=== PATIENT | male | born 1955 | race Caucasian/White ===

== ENCOUNTER 2021-01-01 12:26 | Inpatient (IN) | payer MEDICAID ==
[~2021-01-01] VITALS: Ht 177.8 cm; Wt 73.5 kg
--- NOTE | 2021-01-01 12:40 | NUR ---
BIB GRAND DAUGHTER C/O R FOOT PAIN X 2 DAYS. HX R FOOT SURGERY 2 WEEKS AGO FOR NON HEALING WOUND. PATIENT A/OX3, DAUGHTER AT BEDSIDE. DR. NAVAS AT BEDSIDE FOR EVAL.
[2021-01-01] MEDS ORDERED: IV NS 0.9% 500 ML BAG IV ONE (13:00)
[2021-01-01 13:19] LABS: BASOPHILS # (AUTO) 0.1 /CMM (0.0-0.2); BASOPHILS % (AUTO) 0.7 % (0.0-2.0); EOSINOPHILS % (AUTO) 0.7 % (0.0-6.0); HEMATOCRIT 36 % (39-51); LYMPHOCYTES # (AUTO) 1.1 /CMM (0.8-4.8); MEAN CORPUSCULAR HGB CONC 34 g/dl (31.0-36.0); MEAN CORPUSCULAR VOLUME 82 fL (80-96); MONOCYTES # (AUTO) 0.5 /CMM (0.1-1.30); NEUTROPHILS # (AUTO) 7.2 /CMM (1.8-8.9); NEUTROPHILS % (AUTO) 80.6 % (43.0-81.0); PLATELET COUNT (AUTO) 353 /CMM (150-450); RED BLOOD CELL COUNT(AUTO) 4.39 MIL/uL (4.5-6.0); WHITE BLOOD COUNT (AUTO) 8.9 K/uL (4.3-11.0)
--- NOTE | 2021-01-01 13:21 | NUR ---
IV LINE ESTABLISHED, BLOOD OBTAINED, COVID SWAB DONE AND RIGHT FOOT WOUND CULTURE SWAB DONE AND ALL SPECIMENS GIVEN TO FUNCTIONAL DIRECTOR.
[2021-01-01] MEDS ORDERED: CARV25TA PO (13:26)
[2021-01-01] MEDS ORDERED: MORPHINE SULFATE INJ 4 MG/ML DISP.SYRIN ONE (13:26)
[2021-01-01] MEDS ORDERED: ARIP5TAB10 PO (13:26)
[2021-01-01] MEDS ORDERED: AMLO2.5T2 PO (13:26)
[2021-01-01] MEDS ORDERED: METF-440 PO (13:26)
[2021-01-01] MEDS ORDERED: CEPH500C2 PO (13:26)
[2021-01-01] MEDS ORDERED: ONDANSETRON HCL/PF 4 MG/2 ML VIAL ONE (13:26)
[2021-01-01] MEDS ORDERED: ACET325T53 PO (13:26)
[2021-01-01] MEDS ORDERED: POLY17PO4 PO (13:27)
[2021-01-01] MEDS ORDERED: TRAZ-182 PO (13:27)
[2021-01-01] MEDS ORDERED: MAGN400O6 PO (13:27)
[2021-01-01] MEDS ORDERED: ONDANSETRON HCL/PF 4 MG/2 ML VIAL IV ONE (13:30)
[2021-01-01] MEDS ORDERED: MORPHINE SULFATE INJ 2 MG/ML DISP.SYRIN IV ONE (13:30)
--- NOTE | 2021-01-01 13:39 | NUR ---
RIGHT FOOT RE-DRESSED.
[2021-01-01 13:44] LABS: CALCIUM, SERUM 9.1 mg/dL (8.5-10.1); CARBON DIOXIDE 25 mmol/L (21-32); CHLORIDE 100 mmol/L (98-107); CREATININE 0.8 mg/dL (0.6-1.3); GLUCOSE 150 mg/dL (74-106); SODIUM SERUM 135 mmol/L (136-145); UREA NITROGEN, BLOOD 14 mg/dL (7-18)
[2021-01-01 13:49] LABS: ALANINE AMINOTRANSFERASE 25 U/L (12-78); ALBUMIN 3.6 g/dL (3.4-5.0); ALKALINE PHOSPHATASE 101 U/L (46-116); ASPARTATE AMINOTRANSFERASE 15 U/L (15-37); BILIRUBIN,DIRECT 0.1 mg/dL (0.0-0.2); BILIRUBIN,TOTAL 0.2 mg/dL (0.2-1.0); TOTAL PROTEIN, SERUM 7.5 g/dL (6.4-8.2)
--- NOTE | 2021-01-01 13:50 | NUR ---
PAGED EPIC INSPECTOR COLD WORKING FOR PANEL
--- NOTE | 2021-01-01 14:05 | NUR ---
CALLED FOR [facility] BED
[2021-01-01] MEDS ORDERED: CEFTRIAXONE 1GM BAG (ER ONLY) 1 GM/50 ML PIGGYBACK IV ONE (14:30)
[2021-01-01] MEDS ORDERED: CEFTRIAXONE 1 G in IV D5W 50 ML IV ONE (14:30)
[2021-01-01] MEDS ORDERED: VANCOMYCIN 1 GM in IV D5W 250 ML IV ONE (14:30)
--- NOTE | 2021-01-01 14:55 | NUR ---
REPORT GIVEN TO IMMACULATE RN. PATIENT TRANSFERRED TO MS FLOOR, IN STABLE CONDITION, WITH HIS BELONGINGS INCLUDING WHEELCHAIR.
--- NOTE | 2021-01-01 14:55 | NUR ---
MS RN ADMITTING NOTES PT TRANSPORTED TO UNIT BY TERRI AT THIS TIME. RECEIVED REPORT FROM BART ZAPIEN @EMERGENCY DEPARTMENT. AOX4. PT ABLE TO VERBALIZE NEEDS. NO SOB NOTED, NO S/O ANY APPARENT DISTRESS AT THIS TIME, NO C/O OF PAIN. PT STABLE ON RA. RESPIRATIONS EVEN AND UNLABORED. IV ACCESS IN LAC G#18, INTACT PATENT AND FLUSHING WELL. WARM TO TOUCH, ACTIVE BOWEL SOUNDS AUSCULTATED THROUGHOUT, LUNGS ARE CLEAR TO AUSCULTATION, GOOD CIRCULATION NOTED, PULSES PRESENT BILATERALLY, CAPILLARY REFILL <3SECONDS, BELONGINGS ACCOUNTED FOR. PT NOTED WITH RIGHT POSTERIOR CALF WOUND 7"X3.5"X2" DEEP AND LEFT FOOT WOUND. PICTURES TAKEN AND FILED IN CHART. ASPIRATION AND SAFETY PRECAUTIONS IN PLACE AND MAINTAINED AT ALL TIMES. BED IN LOWEST LOCKED POSITION, HOB ELEVATED, SIDE RAILS UP X 2. CALL LIGHT AND TABLE WITHIN REACH. WILL CONTINUE TO MONITOR
[2021-01-01 16:00] VITALS: BP 146/89
[2021-01-01] MEDS ORDERED: ONDANSETRON HCL/PF 4 MG/2 ML VIAL IVP PRN (17:00)
[2021-01-01] MEDS ORDERED: Z GUARD REMEDY 2 OZ OINT TP PRN (17:00)
[2021-01-01] MEDS ORDERED: IV NS 0.9% 1,000 ML IV PRN (17:00)
[2021-01-01] MEDS ORDERED: CARVEDILOL 6.25 MG TABLET PO SCH (17:00)
[2021-01-01] MEDS: METFORMIN 500 MG TABLET PO SCH (17:50)
[2021-01-01] MEDS: HYDROCODONE/APAP 5/325MG TABLET PO PRN ×2 (17:50→21:44)
--- NOTE | 2021-01-01 17:50 | NUR ---
PT C/O OF ACHING RIGHT POSTERIOR ANKLE OF 7/10. PT NOTED GRIMACING. VS BP 146/89, HR 104, RR 18, TEMP 98.1, SPO2 99%. PER PATIENT REQUEST, NORCO 5-325MG PO Q4H PRN FOR PAIN ADMINISTERED AT THIS TIME PER ORDER. WILL CONTINUE TO MONITOR
--- NOTE | 2021-01-01 18:00 | NUR ---
RENÉ, PT'S GRAND DAUGHTER AT BEDSIDE AT THIS TIME. WILL CONTINUE WITH PLAN OF CARE
--- NOTE | 2021-01-01 19:18 | NUR ---
MS RN CLOSING NOTES PT AWAKE IN BED AT THIS TIME. PT REMAINED STABLE THROUGHOUT SHIFT. ALL CARE, NEEDS, TREATMENT AND MEDICATIONS ADMINISTERED ANTICIPATED PER ORDER. PT KEPT CLEAN AND DRY. SAFETY PRECAUTIONS IN PLACE AND MAINTAINED AT ALL TIMES. BED IN LOWEST LOCKED POSITION, HOB ELEVATED, SIDE RAILS UP X 2. CALL LIGHT AND TABLE WITHIN REACH. WILL CONTINUE TO MONITOR
[2021-01-01 20:00] VITALS: BP 133/85
--- NOTE | 2021-01-01 20:10 | NUR ---
RECEIVED PATIENT IN BED ALERT AND ORIENTATED CALL LIGHT WITHIN HIS REACH RIGHT FOOT ELEVATED ON 2 PILLOWS GAUZE DRESSING CDI TOES WARM MOVEMENT PRESENNT SITTER AT THE BEDSIDE D/T HE GET OOB AND WONDERS
[2021-01-01] MEDS: ENOXAPARIN SODIUM 40 MG/0.4 ML DISP.SYRIN SQ SCH (20:31)
[2021-01-01 20:33] VITALS: BP 133/83
[2021-01-01] MEDS: CARVEDILOL 12.5 MG TABLET PO SCH (20:33)
[2021-01-01] MEDS: TRAZODONE 50 MG TABLET PO SCH (21:43)
[2021-01-02] MEDS: HYDROCODONE/APAP 5/325MG TABLET PO PRN ×2 (04:12→09:05)
--- NOTE | 2021-01-02 04:27 | NUR ---
ENDING NOTES: >CONFUSED AT TIMES GETTING IN AND OUT OF THE BED AMBULATING TO THE BATHROOM >STEADY ON HIS LEGS SITTER AT THE BEDSIDE > DRESSING RIGHT FOOT CDI TAKES AWAY THE PILLOW THAT WAS PLACED UNDER THE LEG TO ELEVATE THE FOOT >DRESSING ON THE RIGHT FOOT NOTED SOME DRAINAGE COMING THROUGH THE DRESSING PT AGAIN REMOVES THE PILLOW FROM THE FOOT NOT TO HAVE IT ELEVATED >MEDICATED X2 FOR FOOT PAIN "RIGHT " FOOT WITH PO ANALGESIC AND EFFECTIVE >REFUSING THE IV FLUID BUT HE IS DRINKING WATER >NO FEVER THIS 12 HOUR
[2021-01-02] MEDS: VANCOMYCIN 1.25 GM in IV D5W 250 ML IV SCH ×2 (05:57→17:04)
[2021-01-02 06:20] LABS: BASOPHILS % (AUTO) 0.4 % (0.0-2.0); EOSINOPHILS % (AUTO) 2.4 % (0.0-6.0); HEMATOCRIT 32 % (39-51); HEMOGLOBIN 10.8 g/dL (13.5-17.5); LYMPHOCYTES # (AUTO) 1.1 /CMM (0.8-4.8); LYMPHOCYTES % (AUTO) 17.9 % (20.0-44.0); MEAN CORPUSCULAR HGB CONC 33 g/dl (31.0-36.0); MEAN CORPUSCULAR VOLUME 82 fL (80-96); MONOCYTES # (AUTO) 0.6 /CMM (0.1-1.30); NEUTROPHILS # (AUTO) 4.3 /CMM (1.8-8.9); NEUTROPHILS % (AUTO) 70.3 % (43.0-81.0); PLATELET COUNT (AUTO) 257 /CMM (150-450); RED BLOOD CELL COUNT(AUTO) 3.93 MIL/uL (4.5-6.0); WHITE BLOOD COUNT (AUTO) 6.1 K/uL (4.3-11.0)
[2021-01-02 06:43] LABS: THYROID STIMULATING HORMONE 3.245 uIU/mL (0.358-3.74)
[2021-01-02 06:57] LABS: ALBUMIN 3.1 g/dL (3.4-5.0); BILIRUBIN,TOTAL 0.4 mg/dL (0.2-1.0); CALCIUM, SERUM 8.8 mg/dL (8.5-10.1); CREATININE 0.7 mg/dL (0.6-1.3); MAGNESIUM 2.2 mg/dL (1.8-2.4); PHOSPHORUS 4.2 mg/dL (2.5-4.9); POTASSIUM 3.9 mmol/L (3.5-5.1); TOTAL PROTEIN, SERUM 6.5 g/dL (6.4-8.2)
--- NOTE | 2021-01-02 08:00 | NUR ---
MS/RN OPENING NOTE RECEIVED PATIENT, SEEN LAYING IN BED. SITTER AT BEDSIDE. PATIENT IS A/O X3 PERIODS OF CONFUSIONS. NO ACUTE DISTRESS NOTED AT THIS TIME. PATIENT ON ROOM AIR, TOLERATING WELL. NO SOB NOTED, BREATHING EVEN, NO LABORED. SAFETY MEASURES IN PLACE, BED LOCKED AND IN LOWEST POSITION, CALL LIGHT WITHIN REACH. WILL CONTINUE TO MONITOR AND ENSURE SAFETY.
[2021-01-02] MEDS: ARIPIPRAZOLE 5 MG TABLET PO SCH (08:25)
[2021-01-02] MEDS: METFORMIN 500 MG TABLET PO SCH ×2 (08:25→16:48)
[2021-01-02] MEDS: CARVEDILOL 12.5 MG TABLET PO SCH ×2 (08:26→20:48)
[2021-01-02] MEDS: AMLODIPINE BESYLATE 2.5 MG TABLET PO SCH (08:26)
[2021-01-02] MEDS: POLYETHYLENE GLYCOL 3350 17 GM POWD.PACK PO SCH (08:27)
[2021-01-02] MEDS: ACETAMINOPHEN 325 MG TABLET PO PRN ×2 (10:31→20:28)
[2021-01-02] MEDS: PREGABALIN 25 MG CAPSULE PO SCH ×2 (11:08→20:48)
[2021-01-02] MEDS: MORPHINE SULFATE INJ 4 MG/ML DISP.SYRIN IV PRN ×2 (11:10→15:37)
[2021-01-02 12:00] VITALS: BP 147/87
[2021-01-02] MEDS ORDERED: CEFTRIAXONE 1 G in IV D5W 50 ML IV SCH (15:00)
[2021-01-02 16:29] VITALS: BP 147/87
--- NOTE | 2021-01-02 20:00 | NUR ---
MS RN NOTES RECEIVED ON BED,A/O X3,ABLE TO ANSWER QUESTIONS RIGHT,IVF NS AT 75ML/HR RATE IN PROGRESS ON LEFT AC.FALL RISK,TRYING TO GET OUT OF BED.SITTER AT BEDSIDE..C/O HEADACHE,WILL MEDICATE.CALL LIGHT IN REACH,NEEDS ANTICIPATED.
--- NOTE | 2021-01-02 20:28 | NUR ---
MS RN NOTES C/O HEADACHE 3/10 ON PAIN SCALE,TYLENOL 650MG PO GIVEN ORDERED PRN FOR MILD PAIN
[2021-01-02] MEDS: ENOXAPARIN SODIUM 40 MG/0.4 ML DISP.SYRIN SQ SCH (20:50)
[2021-01-02] MEDS: TRAZODONE 50 MG TABLET PO SCH (21:28)
[2021-01-03 05:50] LABS: BASOPHILS % (AUTO) 0.5 % (0.0-2.0); EOSINOPHILS % (AUTO) 1.9 % (0.0-6.0); HEMATOCRIT 33 % (39-51); HEMOGLOBIN 11.2 g/dL (13.5-17.5); LYMPHOCYTES # (AUTO) 1.1 /CMM (0.8-4.8); LYMPHOCYTES % (AUTO) 18.2 % (20.0-44.0); MEAN CORPUSCULAR HGB CONC 34 g/dl (31.0-36.0); MEAN CORPUSCULAR VOLUME 82 fL (80-96); MONOCYTES # (AUTO) 0.5 /CMM (0.1-1.30); MONOCYTES % (AUTO) 8.9 % (2.0-12.0); NEUTROPHILS # (AUTO) 4.2 /CMM (1.8-8.9); NEUTROPHILS % (AUTO) 70.5 % (43.0-81.0); PLATELET COUNT (AUTO) 290 /CMM (150-450); RED BLOOD CELL COUNT(AUTO) 4.05 MIL/uL (4.5-6.0)
[2021-01-03] MEDS: VANCOMYCIN 1.25 GM in IV D5W 250 ML IV SCH (06:45)
[2021-01-03 07:06] LABS: CALCIUM, SERUM 8.8 mg/dL (8.5-10.1); CREATININE 0.7 mg/dL (0.6-1.3); MAGNESIUM 2.1 mg/dL (1.8-2.4); PHOSPHORUS 3.3 mg/dL (2.5-4.9); POTASSIUM 3.8 mmol/L (3.5-5.1)
--- NOTE | 2021-01-03 07:22 | NUR ---
MS RN NOTES FAIRLY RESTED AT NIGHT,HEADACHE IMPROVED,VANCOMYCIN TROUGH 5,DUE DOSE INFUSING AT THIS TIME.CALM AND QUIET THRU OUT SHIFT,NO FALL,NO INJURY,SITTER AT BEDSIDE FOR SAFETY,PATIENT HAS TENDENCY TO GET OUT OF BED.
--- NOTE | 2021-01-03 07:45 | NUR ---
MS RN OPENING NOTE RECEIVED PATIENT LYING IN BED, AWAKE. A/O X3, PERIODS OF CONFUSION. SITTER AT BEDSIDE. PATIENT STATES HE HAS 8/10 PAIN - WILL ADMINISTER PAIN MEDICATION. NO ACUTE DISTRESS NOTED AT THIS TIME. PATIENT ON ROOM AIR, TOLERATING WELL. NO SOB NOTED. BREATHING IS EVEN AND UNLABORED. SAFETY MEASURES IN PLACE. CALL LIGHT WITHIN REACH. WILL CONTINUE TO MONITOR.
--- NOTE | 2021-01-03 07:50 | NUR ---
m/s grit blaster: wound consult seen and examined by melida davenport (rn) at this time. pt for frame expander consult. tx done per recommendation by wound nurse. will continue to monitor.
[2021-01-03 08:00] VITALS: BP 143/87
--- NOTE | 2021-01-03 08:00 | NUR ---
m/s date pitter: notes pt has episodes irritable behavior and confusion, but redirectable. reality orientation provided prn. pt c/o 04/12 generalized pain, medicated with morphine 4mg ivp at 0801 by rn. will continue to monitor.
[2021-01-03] MEDS: MORPHINE SULFATE INJ 4 MG/ML DISP.SYRIN IV PRN ×3 (08:01→16:24)
--- NOTE | 2021-01-03 08:14 | NUR ---
WOUND CARE CONSULT: PT PRESENTS WITH LEFT ABDOMINAL WOUND, UNKNOWN ETIOLOGY AND BILATERAL FOOT/ANKLE WOUNDS, PRESENT ON ADMISSION. RECOMMEND SURGICAL AND DPM CONSULTS. DR RAYMUNDO URENA AND DR TRIPP NOTIFIED OF CONSULT REQUESTS. RECOMMENDATIONS MADE FOR SKIN PROTECTION AND CARE OF ABDOMINAL WOUND. DISCUSSED WITH NURSING STAFF. IN AGREEMENT WITH PLAN OF CARE. Addendum: 01/03/21 at 0816 by STELLA SMITH WNDNU Amended: Links added.
--- NOTE | 2021-01-03 08:31 | NUR ---
m/s property assessment monitor: notes resting comfortable in bed. ye foot dressing in place. awaiting for dpm and plastic surgeon. will continue to monitor.
[2021-01-03] MEDS: POLYETHYLENE GLYCOL 3350 17 GM POWD.PACK PO SCH (08:32)
[2021-01-03] MEDS: CARVEDILOL 12.5 MG TABLET PO SCH ×2 (08:34→19:36)
[2021-01-03] MEDS: METFORMIN 500 MG TABLET PO SCH ×2 (08:34→16:18)
[2021-01-03] MEDS: AMLODIPINE BESYLATE 2.5 MG TABLET PO SCH (08:34)
[2021-01-03] MEDS: PREGABALIN 25 MG CAPSULE PO SCH ×2 (08:34→19:36)
[2021-01-03] MEDS: ARIPIPRAZOLE 5 MG TABLET PO SCH (08:34)
[2021-01-03] MEDS ORDERED: CEFT1VIA14 IJ (11:08)
[2021-01-03] MEDS ORDERED: PREG25CA PO (11:08)
[2021-01-03] MEDS ORDERED: VANC1PLA9 IV (11:08)
--- NOTE | 2021-01-03 11:30 | NUR ---
m/s spike maker: md visit seen and examined by client support coordinator's student of dr. merritt at this time. client support coordinator student examined pt's wound and informed her that pt has no id consult order and awaiting for emergency medical service manager to see pt.
[2021-01-03] MEDS ORDERED: SULF1TAB48 PO (12:21)
--- NOTE | 2021-01-03 12:23 | NUR ---
m/s television news photographer: notes ate 100% for lunch. c/o 04/12 generalized discomfort, medicated with morphine 4mg ivp by rn. will continue to monitor.
--- NOTE | 2021-01-03 12:53 | NUR ---
m/s supervisor rose grading: notes verbalized relief of pain. pt remains easily irritable, but redirectable. reality orientation provided prn. sitter remains at bedside. will continue to monitor.
[2021-01-03] MEDS ORDERED: VANCOMYCIN 1 GM in IV D5W 250ml IV SCH (14:00)
--- NOTE | 2021-01-03 15:03 | NUR ---
m/s auger mill operator: plastic surgeon consult seen by patti (juan f) at this time.
--- NOTE | 2021-01-03 15:50 | NUR ---
m/s machine marker: notes awake, watching tv at this time. voiced no discomfort. awaiting for expanded duty dental assistant to see pt. for d'c planning. will continue to monitor.
[2021-01-03 16:00] VITALS: BP 147/91
[2021-01-03] MEDS ORDERED: GENTAMICIN 0.1% OINT 15 GM TUBE TP SCH (17:30)
--- NOTE | 2021-01-03 18:22 | NUR ---
MS RN CLOSING NOTE PATIENT CURRENTLY SITTING UP IN BED, AWAKE. A/O X3, PERIODS OF CONFUSION. SITTER AT BEDSIDE. ON ROOM AIR - TOLERATING WELL. NO SOB NOTED. NO ACUTE DISTRESS NOTED AT THIS TIME. BREATHING IS EVEN AND UNLABORED. FOOT AND ABDOMEN WOUNDS CLEANED AND DRESSED. STILL PENDING PODIATRY CONSULT FROM DR. ACOSTA. [facility] DAUGHTER, RENÉ TINOCO. REPORT GIVEN TO THEODORE. PICKUP SCHEDULED FOR 8PM. SAFETY MEASURES IN PLACE. CALL LIGHT WITHIN REACH. WILL ENDORSE TO SEATING CAPTAIN NURSE FOR [place].
--- NOTE | 2021-01-03 18:44 | NUR ---
Podiatry consult done, leg mri recommended due to wound, Dr. Louis contacted regarding to hold dc for mri in am, he stated to dc pt with outpatient mri, [facility] informed to follow up the order.
--- NOTE | 2021-01-03 19:39 | NUR ---
PATIENT PLANNING TO BE DISCHARGED. BP WAS HIGH 170/100 HR 98 GIVEN EVENING BP MEDICATIONS EARLY. WILL RECHECK PRIOR TO DISCHARGE.
--- NOTE | 2021-01-03 19:50 | NUR ---
WOUND CARE PERFORMED ORDERED. DISCHARGE WOUND PICTURES TAKEN .
[2021-01-03 20:28] VITALS: BP 148/77
--- NOTE | 2021-01-03 20:28 | NUR ---
AMBULANCE HERE UNIT #[id number], REPORT GIVENT TO ABRAHAM Madrid. PATIENT BLOOD PRESSURE RECHECKED AND IS NOW 148/77 HR 95. INFORMED OF MRSA IN TISSUE OF PATIENT. ASKED TO CALL FACILITY TO UPDATE WITH THAT INFORMATION.. [facility]. INFORMED OF POSITIVE MRSA CULTURE. INFORMED OF HIGH BP EARLIER AND CURRENT VITAL SIGNS. SPOKE WITH NURSE THEODORE, STATES SHE WILL STILL BE ABLE TO ACCEPT PATIENT BUT ROOM MIGHT HAVE TO BE REASSIGNED. Addendum: 01/03/21 at 2037 by NYDIA SIMMONS RN CALLED DIEUDONNE MERRITT [phone] UPDATED WITH PATIENT DESKTOP PUBLISHING SPECIALIST AND TRANSPORT. REVIEWED PLAN OF CARE. QUESTIONS CONCERNS ADDRESSED. STATES SHE WILL FOLLOW UP WITH THE FACILITY.
== END 2021-01-03 20:30 | DRG 380 ==
LOC: ER 12:31 → TELE 14:29 → MED 15:19
PROVIDERS: ADMIT Nurse Practitioner Acute Care; ATTEND Nurse Practitioner Acute Care
DX: E11.621 Type 2 diabetes mellitus with foot ulcer (principal); L97.529 Non-pressure chronic ulcer of other part of left foot with unspecified severity; L97.319 Non-pressure chronic ulcer of right ankle with unspecified severity; E11.42 Type 2 diabetes mellitus with diabetic polyneuropathy; F03.90 Unspecified dementia, unspecified severity, without behavioral disturbance, psychotic disturbance, mood disturbance, and anxiety; E87.1 Hypo-osmolality and hyponatremia; I10 Essential (primary) hypertension; F32.9 Major depressive disorder, single episode, unspecified; Z79.84 Long term (current) use of oral hypoglycemic drugs; F41.9 Anxiety disorder, unspecified; B95.62 Methicillin resistant Staphylococcus aureus infection as the cause of diseases classified elsewhere; Z20.822 Contact with and (suspected) exposure to COVID-19
CPT/HCPCS: 36415; 80048-TC; 80053-TC; 80061-TC; 80076-TC; 80202-TC; 83605-TC; 83735-TC; 84100-TC; 84443-TC; 84484-TC; 85025-TC; 85730-TC; 87040-TC; 87070-TC; 87081-TC; A6253; A6403; A6407; C9803; G0378; J0696; J1650; J2270; J2405; J3370; J7030; J7040; J7050; J7060

== ENCOUNTER 2021-12-06 21:30 | Inpatient (IN) | payer MEDICARE, OTHER ==
[~2021-12-06] VITALS: Ht 177.8 cm; Wt 93.4 kg
[~2021-12-06 21:30] MED LIST: ACET325T53 PO; AMLO2.5T2 PO; ARIP5TAB10 PO; CARV25TA PO; MAGN400O6 PO; METF-440 PO; POLY17PO4 PO; PREG25CA PO; SULF1TAB48 PO; TRAZ-182 PO; VANC1PLA9 IV
--- NOTE | 2021-12-06 21:55 | NUR ---
TO ER BED 2. BIBPA C/O FEVER & INCREASED CONFUSION X TODAY. OPEN WOUND AND SWELLING NOTED ON L FOOT. PT NOT IN RESPIRATORY DISTRESS. CONNECTED TO MONITOR. FALL PRECAUTIONS IN PLACE. AWAITING MD LUTHER
--- NOTE | 2021-12-06 22:02 | NUR ---
RENÉ, GRAND DAUGHTER - [phone]
--- NOTE | 2021-12-06 22:10 | NUR ---
IV LINE ESTABLISHED , LFA 18G. BLOOD COLLECTED AND SENT TO LAB
--- NOTE | 2021-12-06 22:17 | NUR ---
COVID ANTIGEN SWAB COLLECTED AND SENT OT LAB
[2021-12-06] MEDS ORDERED: BENZOIN COMPOUND TINCT 60 ML BOTTLE ONE (22:18)
--- NOTE | 2021-12-06 22:22 | NUR ---
DAYA MANCUSO AT BEDSIDE FOR EKG
[2021-12-06 22:37] LABS: BASOPHILS % (AUTO) 0.1 % (0.0-2.0); HEMATOCRIT 34 % (39-51); LYMPHOCYTES # (AUTO) 0.6 K/uL (0.8-4.8); LYMPHOCYTES % (AUTO) 6.6 % (20.0-44.0); MEAN CORPUSCULAR HGB CONC 33 g/dl (31.0-36.0); MEAN CORPUSCULAR VOLUME 82 fL (80-96); MONOCYTES # (AUTO) 0.9 K/uL (0.1-1.30); MONOCYTES % (AUTO) 9.3 % (2.0-12.0); NEUTROPHILS # (AUTO) 8.1 K/uL (1.8-8.9); PLATELET COUNT (AUTO) 296 K/uL (150-450); RED BLOOD CELL COUNT(AUTO) 4.09 MIL/uL (4.5-6.0); WHITE BLOOD COUNT (AUTO) 9.7 K/uL (4.3-11.0)
[2021-12-06 22:52] LABS: ALANINE AMINOTRANSFERASE 20 U/L (12-78); ALBUMIN 3.6 g/dL (3.4-5.0); ALKALINE PHOSPHATASE 52 U/L (46-116); ASPARTATE AMINOTRANSFERASE 17 U/L (15-37); BILIRUBIN,DIRECT 0.1 mg/dL (0.0-0.2); BILIRUBIN,TOTAL 0.5 mg/dL (0.2-1.0); CALCIUM, SERUM 9.3 mg/dL (8.5-10.1); CARBON DIOXIDE 24 mmol/L (21-32); CHLORIDE 95 mmol/L (98-107); CREATININE 1.2 mg/dL (0.6-1.3); GLUCOSE 214 mg/dL (74-106); SODIUM SERUM 130 mmol/L (136-145); TOTAL PROTEIN, SERUM 7.3 g/dL (6.4-8.2); UREA NITROGEN, BLOOD 19 mg/dL (7-18)
--- NOTE | 2021-12-06 22:53 | NUR ---
URINE SAMPLE COLLECTED AND SENT TO LAB
[2021-12-06] MEDS ORDERED: VANCOMYCIN 1 GM in IV D5W 250 ML IV ONE (23:00)
[2021-12-06] MEDS ORDERED: PIPERACILLIN /TAZOBACTAM 3.375 G in IV D5W 50 ML IV ONE (23:00)
[2021-12-06] MEDS ORDERED: PIPERACILLIN /TAZOBACTAM 3.375 G VIAL IV ONE (23:04)
[2021-12-06] MEDS ORDERED: VANCOMYCIN 1 GM VIAL ONE (23:04)
[2021-12-06] MEDS ORDERED: IV NS 0.9% 250 ML IV ONE ×2 (23:14→23:43)
[2021-12-06] MEDS ORDERED: IOHEXOL-300 100 ML VIAL IV ONE ×2 (23:14→23:43)
[2021-12-06] MEDS ORDERED: CT SWABBABLE VALVE TRANS SET 1 EA INFUS.SET MC ONE ×2 (23:14→23:43)
[2021-12-06 23:24] LABS: BILIRUBIN,URINE NEGATIVE (NEGATIVE); COLOR,URINE YELLOW (YELLOW); LEUKOCYTE ESTERASE ,URINE NEGATIVE (NEGATIVE); NITRITE, URINE NEGATIVE (NEGATIVE); PROTEIN,URINE NEGATIVE (NEGATIVE); UGLUCOSE NEGATIVE (NEGATIVE); UROBILINOGEN,URINE 0.2 EU/dL (0.2)
--- NOTE | 2021-12-07 00:14 | NUR ---
BACK FROM CT
--- NOTE | 2021-12-07 00:57 | NUR ---
PT IS RESTING COMFORTABLY IN BED, SLEEPING BUT EASILY AROUSABLE.
--- NOTE | 2021-12-07 02:07 | NUR ---
REPORT GIVEN TO BERNICE ARRIAGA FOR [place]
--- NOTE | 2021-12-07 03:45 | NUR ---
TRANSFERRED PT TO 312 VIA ACLS
[2021-12-07] MEDS ORDERED: MAG HYDROX/AL HYDROX/SIMETH 30 ML UDC PO PRN (04:00)
[2021-12-07] MEDS ORDERED: ACETAMINOPHEN 325 MG TABLET PO PRN ×2 (04:00→09:00)
[2021-12-07] MEDS ORDERED: ONDANSETRON HCL/PF 4 MG/2 ML VIAL IVP PRN (04:00)
[2021-12-07] MEDS ORDERED: Z GUARD REMEDY 4 OZ OINT TP PRN (04:00)
[2021-12-07] MEDS ORDERED: DEXTROSE 50%-WATER 50 ML DISP.SYRIN IV PRN (04:00)
[2021-12-07] MEDS ORDERED: MAGNESIUM HYDROXIDE 30 ML UDC PO PRN ×2 (04:00→09:00)
[2021-12-07] MEDS: ENOXAPARIN SODIUM 40 MG/0.4 ML DISP.SYRIN SQ SCH ×2 (04:52→21:00)
[2021-12-07] MEDS ORDERED: ZOSYN IVPB 3.375 G in IV D5W 50ml IV ONE (05:00)
[2021-12-07] MEDS ORDERED: PIPERACILLIN /TAZOBACTAM 3.375 G VIAL IV ONE (05:06)
[2021-12-07 06:16] VITALS: BP 149/82
--- NOTE | 2021-12-07 07:20 | NUR ---
RN OPENING NOTES RECEIVED PATIENT IN BED, AWAKE, ALERT, VERBALLY RESPONSIVE. NOTED WITH CONFUSION, REALITY AWARENESS PROVIDED. ON ROOM AIR, TOLERATING WELL. NO SOB NOTED. BREATHING EVEN AND UNLABORED. NOTED WITH IV ACCESS ON LEFT FOREARM, #18G, SALINE LOCKED. SAFETY MEASURES PROVIDED. BED LOCKED AND IN LOWEST POSITION, SR UP X2, CALL LIGHT PLACED WITHIN EASY REACH. WILL CONTINUE TO MONITOR.
[2021-12-07] MEDS: BLOOD SUGAR DIAGNOSTIC 1 EACH STRIP IN SCH ×4 (07:30→21:16)
[2021-12-07] MEDS: INSULIN REGULAR, HUMAN 100 UNIT/ML 3 ML VIAL SQ PRN ×4 (07:33→22:01)
[2021-12-07 08:00] VITALS: BP 150/89
[2021-12-07] MEDS: PANTOPRAZOLE 40 MG TABLET.DR PO SCH (08:09)
--- NOTE | 2021-12-07 08:15 | NUR ---
WOUND CARE CONSULT: PT EATING AT THIS TIME AND DENIES NEED FOR FULL SKIN ASSESSMENT. PT NOTED TO HAVE DIABETIC ULCER WITH REDNESS AND SWELLING TO LEFT FOOT, PRESENT ON ADMISSION. DR TRIPP CALLED FOR DPM CONSULT. DISCUSSED WITH NURSING STAFF. CURRENT NAYELY SCORE IS 17. MD IN AGREEMENT WITH PLAN OF CARE.
[2021-12-07] MEDS ORDERED: BACL10TA PO (08:21)
[2021-12-07] MEDS ORDERED: ACET-868 PO (08:21)
[2021-12-07] MEDS ORDERED: GENT3.5O4 TD (08:21)
[2021-12-07] MEDS ORDERED: BUPR2TAB3 SL (08:21)
[2021-12-07] MEDS ORDERED: MAGN400O6 PO (08:21)
[2021-12-07] MEDS ORDERED: AMIN30LI2 PO (08:21)
[2021-12-07] MEDS ORDERED: PREG50CA PO (08:21)
[2021-12-07] MEDS ORDERED: ATOR10TA PO (08:21)
[2021-12-07] MEDS ORDERED: TYL2T PO (08:21)
[2021-12-07] MEDS ORDERED: FENO145T PO (08:21)
[2021-12-07] MEDS ORDERED: METF-440 PO (08:21)
[2021-12-07] MEDS ORDERED: CEPH500C2 PO (08:21)
[2021-12-07] MEDS ORDERED: DONE5TAB34 PO (08:21)
[2021-12-07] MEDS ORDERED: LIDO30AD10 TP (08:21)
[2021-12-07] MEDS ORDERED: BACL5TAB PO (08:21)
[2021-12-07] MEDS ORDERED: DIVA125C2 PO (08:21)
[2021-12-07] MEDS ORDERED: MULT-447 PO (08:21)
[2021-12-07] MEDS ORDERED: VITA1TAB56 PO (08:21)
[2021-12-07] MEDS ORDERED: ASPI-1169 PO (08:21)
[2021-12-07] MEDS ORDERED: ASCO-352 PO (08:21)
[2021-12-07] MEDS ORDERED: IMIQ1CRE11 TP (08:21)
[2021-12-07] MEDS ORDERED: POLY17PO4 PO (08:21)
[2021-12-07] MEDS ORDERED: BUPRENORPHINE HCL 2 MG TAB.SUBL SL SCH (09:00)
[2021-12-07] MEDS: ACETAMINOPHEN 325 MG TABLET PO SCH ×2 (09:16→16:24)
[2021-12-07] MEDS: DIVALPROEX SODIUM 125 MG CAP.SPRINK PO SCH ×3 (09:16→16:25)
[2021-12-07] MEDS: PREGABALIN 25 MG CAPSULE PO SCH ×4 (09:16→22:03)
[2021-12-07] MEDS: POLYETHYLENE GLYCOL 3350 17 GM POWD.PACK PO SCH (09:16)
[2021-12-07] MEDS: BACLOFEN (10 MG) 10 MG TABLET PO SCH ×3 (09:16→16:25)
[2021-12-07] MEDS: LIDOCAINE 5% (PATCH) 1 EA PATCH TP SCH (09:17)
[2021-12-07] MEDS: AMLODIPINE BESYLATE 2.5 MG TABLET PO SCH (09:17)
[2021-12-07] MEDS: ASPIRIN 81 MG TAB.CHEW PO SCH (09:17)
[2021-12-07] MEDS: CARVEDILOL 12.5 MG TABLET PO SCH ×2 (09:17→16:25)
[2021-12-07] MEDS: ARIPIPRAZOLE 5 MG TABLET PO SCH (09:33)
[2021-12-07 09:44] LABS: CALCIUM, SERUM 8.9 mg/dL (8.5-10.1); CREATININE 1.2 mg/dL (0.6-1.3); POTASSIUM 3.6 mmol/L (3.5-5.1)
[2021-12-07] MEDS: ZOSYN IVPB 3.375 G in IV D5W 50ml IV SCH ×2 (11:39→17:17)
[2021-12-07] MEDS: VANCOMYCIN 0.75 GM in IV D5W 250 ML IV SCH ×2 (12:10→23:17)
[2021-12-07] MEDS: GLUCERNA SHAKE 237 ML CAN PO SCH ×2 (15:00→17:08)
[2021-12-07 16:00] VITALS: BP 132/79
--- NOTE | 2021-12-07 18:55 | NUR ---
RN CLOSING NOTES PATIENT IN BED, AWAKE, A/O X1, VERBALLY RESPONSIVE. STILL NOTED WITH CONFUSION, REORIENTED NEEDED. REMAINS STABLE ON ROOM AIR. NO SOB NOTED. BREATHING EVEN AND UNLABORED. IV ACCESS ON LEFT FOREARM, #18G, INTACT AND PATENT, SALINE LOCKED. SAFETY MEASURES PROVIDED. BED LOCKED AND IN LOWEST POSITION, SR UP X2, CALL LIGHT PLACED WITHIN EASY REACH. WILL ENDORSE TO NEXT SHIFT FOR CONTINUITY OF CARE.
--- NOTE | 2021-12-07 19:30 | NUR ---
MS RN OPENING NOTES RECEIVED PATIENT LYING IN BED, EYES CLOSED. EASY TO AROUSE. A/O X1, VERY CONFUSED. NO C/O PAIN AT THIS TIME. VERBALIZED FEAR, REORIENTED PATIENT THAT HE IS IN THE HOSPITAL. STABLE ON ROOM AIR. HAS LEFT FOREARM IV ACCESS #18G AND SALINE LOCKED. SAFETY MEASURES IN PLACE. WILL CONTINUE PLAN OF CARE.
[2021-12-07 20:00] VITALS: BP 109/61
--- NOTE | 2021-12-07 21:55 | NUR ---
MS RN NOTES CALLED [facility], SPOKE WITH DR. OCONNOR AND RECEIVED ORDER TO HOLD LOVENOX. PATIENT HAS I&D TOMORROW.
--- NOTE | 2021-12-07 22:02 | NUR ---
MS ARRIAGA NOTES NO INSULIN COVERAGE GIVEN. PATIENT WILL BE ON NPO AFTER MIDNIGHT FOR SX. Addendum: 12/08/21 at 0321 by February ZEINA ARRIAGA PATIENT REFUSED TO EAT
[2021-12-07] MEDS: DONEPEZIL 5 MG TABLET PO SCH (22:04)
[2021-12-07] MEDS: ATORVASTATIN 10 MG TABLET PO SCH (22:04)
[2021-12-08] MEDS: ZOSYN IVPB 3.375 G in IV D5W 50ml IV SCH ×5 (00:04→23:22)
[2021-12-08 06:50] LABS: ALBUMIN 3.3 g/dL (3.4-5.0); BILIRUBIN,TOTAL 0.5 mg/dL (0.2-1.0); CALCIUM, SERUM 9.1 mg/dL (8.5-10.1); MAGNESIUM 2.5 mg/dL (1.8-2.4); PHOSPHORUS 3.3 mg/dL (2.5-4.9); POTASSIUM 3.9 mmol/L (3.5-5.1); TOTAL PROTEIN, SERUM 7.3 g/dL (6.4-8.2)
[2021-12-08] MEDS: BLOOD SUGAR DIAGNOSTIC 1 EACH STRIP IN SCH ×4 (06:58→21:57)
[2021-12-08 07:24] LABS: BASOPHILS % (AUTO) 0.2 % (0.0-2.0); EOSINOPHILS % (AUTO) 1.3 % (0.0-6.0); HEMATOCRIT 32 % (39-51); HEMOGLOBIN 10.6 g/dL (13.5-17.5); LYMPHOCYTES % (AUTO) 12.5 % (20.0-44.0); MEAN CORPUSCULAR HGB CONC 33 g/dl (31.0-36.0); MEAN CORPUSCULAR VOLUME 82 fL (80-96); MONOCYTES # (AUTO) 0.6 K/uL (0.1-1.30); MONOCYTES % (AUTO) 8.4 % (2.0-12.0); NEUTROPHILS % (AUTO) 77.6 % (43.0-81.0); PLATELET COUNT (AUTO) 273 K/uL (150-450); WHITE BLOOD COUNT (AUTO) 7.7 K/uL (4.3-11.0)
--- NOTE | 2021-12-08 07:27 | NUR ---
TANGLED YARN SPOOL STRAIGHTENER CLOSING NOTES PATIENT LYING IN BED AWAKE. A/O X1, STILL NOTED WITH CONFUSION. NO SOB OR NOTED. BREATHING EVEN AND UNLABORED. PATIENT INSISTS ON DRINKING WATER. PRE-OP TEACHING GIVEN BUT VERBALIZED HE CAN'T UNDERSTAND WHY WE ARE DOING THIS TO HIM. REORIENTED TO PLACE AND SITUATION. HAS LEFT FOREARM IV ACCESS #18G AND SALINE LOCKED. INTACT, PATENT AND FLUSHING. ALL MEDS GIVEN AND NEEDS ATTENDED. SAFETY MEASURES IN PLACE: BED LOW AND LOCKED, SIDE RAILS UP X3, CALL LIGHT WITHIN REACH.
--- NOTE | 2021-12-08 07:48 | NUR ---
RN OPENING NOTES Patient seen comfortably lying in bed, no apparent distress noted, respirations even and unlabored, no SOB, denies any pain or discomfort at this time, no grimacing. Call light left within reach, safety precautions in place, brakes locked, side rails up X 2, will monitor closely for any changes.
[2021-12-08 08:00] VITALS: BP 140/72
[2021-12-08] MEDS: GLUCERNA SHAKE 237 ML CAN PO SCH ×3 (08:00→17:04)
[2021-12-08] MEDS: ASPIRIN 81 MG TAB.CHEW PO SCH (09:00)
[2021-12-08] MEDS: AMLODIPINE BESYLATE 2.5 MG TABLET PO SCH (09:27)
[2021-12-08] MEDS: ACETAMINOPHEN 325 MG TABLET PO SCH ×2 (09:27→16:53)
[2021-12-08] MEDS: DIVALPROEX SODIUM 125 MG CAP.SPRINK PO SCH ×3 (09:28→16:53)
[2021-12-08] MEDS: PREGABALIN 25 MG CAPSULE PO SCH ×4 (09:28→21:39)
[2021-12-08] MEDS: BACLOFEN (10 MG) 10 MG TABLET PO SCH ×3 (09:28→16:53)
[2021-12-08] MEDS: ARIPIPRAZOLE 5 MG TABLET PO SCH (09:28)
[2021-12-08] MEDS: CARVEDILOL 12.5 MG TABLET PO SCH ×2 (09:28→16:54)
[2021-12-08] MEDS: LIDOCAINE 5% (PATCH) 1 EA PATCH TP SCH (09:28)
[2021-12-08] MEDS: POLYETHYLENE GLYCOL 3350 17 GM POWD.PACK PO SCH (09:28)
[2021-12-08] MEDS: PANTOPRAZOLE 40 MG TABLET.DR PO SCH (09:29)
[2021-12-08] MEDS ORDERED: ANESTHESIA TRAY IN PYXIS 1 EA TRAY MC ONE (10:06)
[2021-12-08] MEDS ORDERED: BUPIVACAINE 0.5 % PF 150 MG/30 ML VIAL ONE (10:07)
[2021-12-08] MEDS ORDERED: BUPIVACAINE 0.25% 75 MG/30 ML VIAL ONE (10:07)
--- NOTE | 2021-12-08 10:30 | NUR ---
Patient left for procedure around 10:30am, remained NPO post-midnight, denies any abdominal pain, no apparent distress notes, no s/s of hypo/hyperglycemia, no change in level of consciousness, no tremors, denies any pain or discomfort, consents and checklist present in patients chart. Patient not wearing any jewelry.
[2021-12-08] MEDS ORDERED: KETAMINE HCL (500MG/10ML) 50 MG/ML VIAL ONE (10:42)
[2021-12-08] MEDS ORDERED: MIDAZOLAM HCL 2 MG/2ML VIAL ONE (10:42)
[2021-12-08] MEDS ORDERED: FENTANYL PF 100MCG/2ML AMPUL ONE (10:42)
--- NOTE | 2021-12-08 12:30 | NUR ---
Patient came back from surgery around 1230Pm, S/P incision and drainage of abscess of left foot and callus debridement of right second and third toe, dressings clean, dry and intact. Patient in stable condition, no apparent distress noted, denies any pain or discomfort at this time, no shortness of breath, afebrile, no respiratory distress. Patient came back with new orders noted and carried out by PACU nurse. Call light left within reach, will monitor closely for any changes.
[2021-12-08] MEDS: VANCOMYCIN 0.75 GM in IV D5W 250 ML IV SCH ×2 (12:43→23:57)
[2021-12-08 16:00] VITALS: BP 129/76
[2021-12-08] MEDS: INSULIN REGULAR, HUMAN 100 UNIT/ML 3 ML VIAL SQ PRN ×2 (17:03→21:58)
--- NOTE | 2021-12-08 18:21 | NUR ---
RN CLOSING NOTES Patient lying in bed, no shortness of breath, respirations even and unlabored, no apparent distress noted, no dizziness, no palpitations, no chest pain, remained afebrile. All due medications given per MD order, tolerating well. Insulin given per sliding scale per MD order, tolerated well, no s/s of hypo or hyperglycemia, no tremors, no change in level of consciousness. Patient has an order for IV ATB (Vancomycin and Zosyn) IV site on left forearm patent, intact, flushing well, covered with dry dressings, no swelling, no redness, no c/o pain or discomfort at site. Patient S/P incision and drainage of left foot and callus debridement of right second and third toe, covered with dry, intact and clean dressings, no unusual odor noted, no bleeding, site wrapped with kulwinder bandage, no s/s of circulation impairment noted at this time, skin warm to touch, no pallor or cyanosis noted, pulse present during shift, no swelling noted at this time. Bilateral lower extremity elevated with pillow, reminded resident that he cannot bear weight on his left foot, verbalized understanding and gratitude. Aspiration precautions observed at all times, kept head of bed elevated, all needs anticipated, kept clean and dry, patient repositioned frequently, safety precautions in place, frequent visual checks rendered, side rails up X 2, brakes locked, call light left within reach, will endorse to next shift for continuity of care.
[2021-12-08 20:00] VITALS: BP 140/80
[2021-12-08 20:14] VITALS: BP 140/80
[2021-12-08] MEDS: ATORVASTATIN 10 MG TABLET PO SCH (21:39)
[2021-12-08] MEDS: DONEPEZIL 5 MG TABLET PO SCH (21:39)
[2021-12-08] MEDS: ENOXAPARIN SODIUM 40 MG/0.4 ML DISP.SYRIN SQ SCH (21:43)
--- NOTE | 2021-12-08 21:50 | NUR ---
ANTICOAGULANT H/H 10. PLT 273 No bleeding. Lovenox injection given co-signed by BART Pate.
--- NOTE | 2021-12-08 22:47 | NUR ---
19:18 CONTINUITY OF CARE Patient sitting up in bed, Alert Oriented to self only, reoriented. Saul feet dressing intact, reminded patient on no weight bearing on left foot. Denies pain. Fall precaution maintained.
[2021-12-09] MEDS: ZOSYN IVPB 3.375 G in IV D5W 50ml IV SCH ×3 (05:07→17:58)
--- NOTE | 2021-12-09 06:01 | NUR ---
END OF SHIFT REPORT Patient is confused, oriented to self only, reoriented frequently. Continue on IV abx. afebrile. Saul feet with Cruz wrap, no bleeding, no c/o pain. Fall precaution maintained. Will endorse to oncoming RN.
[2021-12-09] MEDS: BLOOD SUGAR DIAGNOSTIC 1 EACH STRIP IN SCH ×4 (06:53→22:27)
[2021-12-09] MEDS: INSULIN REGULAR, HUMAN 100 UNIT/ML 3 ML VIAL SQ PRN ×3 (06:54→22:31)
--- NOTE | 2021-12-09 07:26 | NUR ---
RN OPENING NOTES RECEIVED PATIENT IN BED, AWAKE, ALERT, VERBALLY RESPONSIVE. NOTED WITH CONFUSION, REALITY AWARENESS PROVIDED. ON ROOM AIR, TOLERATING WELL. NO SOB NOTED. BREATHING EVEN AND UNLABORED. NOTED WITH IV ACCESS ON LEFT FOREARM, #22G, SALINE LOCKED. SAFETY MEASURES PROVIDED. BED LOCKED AND IN LOWEST POSITION, SR UP X2, CALL LIGHT PLACED WITHIN EASY REACH. WILL CONTINUE TO MONITOR.
[2021-12-09 07:50] LABS: CALCIUM, SERUM 9.2 mg/dL (8.5-10.1); CREATININE 0.8 mg/dL (0.6-1.3)
[2021-12-09 08:00] VITALS: BP 139/76
[2021-12-09] MEDS: PANTOPRAZOLE 40 MG TABLET.DR PO SCH (08:10)
[2021-12-09] MEDS: GLUCERNA SHAKE 237 ML CAN PO SCH ×3 (08:10→17:02)
[2021-12-09] MEDS: LIDOCAINE 5% (PATCH) 1 EA PATCH TP SCH (08:12)
[2021-12-09] MEDS: POLYETHYLENE GLYCOL 3350 17 GM POWD.PACK PO SCH (08:12)
[2021-12-09] MEDS: PREGABALIN 25 MG CAPSULE PO SCH ×4 (08:13→21:12)
[2021-12-09] MEDS: ACETAMINOPHEN 325 MG TABLET PO SCH ×2 (08:13→16:28)
[2021-12-09] MEDS: ASPIRIN 81 MG TAB.CHEW PO SCH (08:13)
[2021-12-09] MEDS: BACLOFEN (10 MG) 10 MG TABLET PO SCH ×3 (08:13→16:29)
[2021-12-09] MEDS: DIVALPROEX SODIUM 125 MG CAP.SPRINK PO SCH ×3 (08:13→16:28)
[2021-12-09] MEDS: ARIPIPRAZOLE 5 MG TABLET PO SCH (08:13)
[2021-12-09] MEDS: CARVEDILOL 12.5 MG TABLET PO SCH ×2 (08:21→16:29)
[2021-12-09] MEDS: AMLODIPINE BESYLATE 2.5 MG TABLET PO SCH (08:21)
[2021-12-09] MEDS: VANCOMYCIN 0.75 GM in IV D5W 250 ML IV SCH ×2 (11:03→22:48)
[2021-12-09 16:00] VITALS: BP 135/75
[2021-12-09] MEDS: MUPIROCIN OINT 2% 22 GM TUBE NS SCH (16:28)
--- NOTE | 2021-12-09 18:50 | NUR ---
RN CLOSING NOTES PATIENT IN BED, AWAKE, ALERT, VERBALLY RESPONSIVE. STILL NOTED WITH CONFUSION, REALITY AWARENESS PROVIDED. REMAINS STABLE ON ROOM AIR, TOLERATING WELL. NO SOB NOTED. BREATHING EVEN AND UNLABORED. WITH IV ACCESS ON LEFT FOREARM, #22G, SALINE LOCKED. SAFETY MEASURES PROVIDED. BED LOCKED AND IN LOWEST POSITION, SR UP X2, CALL LIGHT PLACED WITHIN EASY REACH. WILL ENDORSE TO NEXT SHIFT FOR CONTINUITY OF CARE.
--- NOTE | 2021-12-09 19:30 | NUR ---
MS RN OPENING NOTES RECEIVED PATIENT ON BED: AWAKE, ALERT AND ORIENTED X 1 WITH PERIODS OF CONFUSION. BREATHING EVENLY AND NONLABORED. IN NO ACUTE DISTRESS NOTED. DENIES ANY PAIN OF THIS TIME. ON ROOM AIR, TOLERATING WELL. WITH IV ACCESS ON LEFT FOREARM G #22; INTACT AND SALINE LOCKED. ABLE TO MAKE NEEDS KNOWN. SAFETY MEASURES IMPLEMENTED: CALL LIGHT AND TABLE WITHIN EASY REACH, SIDE RAILS UP X 2, BED IN LOWEST LOCKED POSITION. WILL CONTINUE TO MONITOR
[2021-12-09] MEDS: ATORVASTATIN 10 MG TABLET PO SCH (21:12)
[2021-12-09] MEDS: DONEPEZIL 5 MG TABLET PO SCH (21:12)
[2021-12-09] MEDS: ENOXAPARIN SODIUM 40 MG/0.4 ML DISP.SYRIN SQ SCH (21:15)
--- NOTE | 2021-12-09 22:30 | NUR ---
MS RN NOTES BLOOD SUGAR CHECKED WITH RESULT OF 213 MG/DL; 4 UNITS OF INSULIN GIVEN SQ PER SLIDING SCALE ORDERED.
[2021-12-10] MEDS: ZOSYN IVPB 3.375 G in IV D5W 50ml IV SCH ×4 (00:54→18:13)
--- NOTE | 2021-12-10 05:10 | NUR ---
MS RN NOTES IV REINSERTION DONE BY NURSE LUTHER AT RIGHT HAND G #22; INTACT, PATENT AND SALINE LOCKED.
[2021-12-10] MEDS: BLOOD SUGAR DIAGNOSTIC 1 EACH STRIP IN SCH ×4 (05:59→22:07)
[2021-12-10 07:05] LABS: CALCIUM, SERUM 8.9 mg/dL (8.5-10.1); CREATININE 0.9 mg/dL (0.6-1.3); POTASSIUM 3.6 mmol/L (3.5-5.1)
--- NOTE | 2021-12-10 07:15 | NUR ---
MS RN CLOSING NOTES PATIENT IS IN BED, AWAKE, ALERT, VERBALLY RESPONSIVE. WITH PERIODS OF CONFUSION. REMAINS STABLE ON ROOM AIR, WELL TOLERATED. NO SOB NOTED. BREATHING EVEN AND UNLABORED. WITH IV ACCESS ON RIGHT HAND G #22; SALINE LOCKED. SAFETY MEASURES PROVIDED. BED IS LOCKED AND LOWEST POSITION, SIDE RAILS UP X2, CALL LIGHT AND TABLE WITHIN EASY REACH. ENDORSED TO NEXT SHIFT FOR CONTINUITY OF CARE.
--- NOTE | 2021-12-10 07:40 | NUR ---
MS/RN OPENING NOTES RECEIVED PATIENT IN BED, AWAKE, ALERT TO SELF AND PLACE, BUT PERIODS OF CONFUSION. ABLE TO MAKE NEEDS KNOWN. REMAINS STABLE ON ROOM AIR, WELL TOLERATED. NO SOB NOTED. BREATHING EVEN AND UNLABORED. WITH IV ACCESS ON RIGHT HAND G #22; SALINE LOCKED. SAFETY MEASURES IN PLACED: BED IS LOCKED AND LOWEST POSITION, SIDE RAILS UP X2, CALL LIGHT AND TABLE WITHIN EASY REACH. WILL CONTINUE WITH THE PLAN OF CARE.
[2021-12-10 08:00] VITALS: BP 124/77
[2021-12-10] MEDS: ARIPIPRAZOLE 5 MG TABLET PO SCH (08:19)
[2021-12-10] MEDS: PANTOPRAZOLE 40 MG TABLET.DR PO SCH (08:19)
[2021-12-10] MEDS: BACLOFEN (10 MG) 10 MG TABLET PO SCH ×3 (08:19→17:11)
[2021-12-10] MEDS: PREGABALIN 25 MG CAPSULE PO SCH ×4 (08:20→21:35)
[2021-12-10] MEDS: POLYETHYLENE GLYCOL 3350 17 GM POWD.PACK PO SCH (08:20)
[2021-12-10] MEDS: ACETAMINOPHEN 325 MG TABLET PO SCH ×2 (08:20→17:11)
[2021-12-10] MEDS: CARVEDILOL 12.5 MG TABLET PO SCH ×2 (08:20→17:12)
[2021-12-10] MEDS: DIVALPROEX SODIUM 125 MG CAP.SPRINK PO SCH ×3 (08:20→17:11)
[2021-12-10] MEDS: ASPIRIN 81 MG TAB.CHEW PO SCH (08:20)
[2021-12-10] MEDS: AMLODIPINE BESYLATE 2.5 MG TABLET PO SCH (08:20)
[2021-12-10] MEDS: LIDOCAINE 5% (PATCH) 1 EA PATCH TP SCH (08:20)
[2021-12-10] MEDS: GLUCERNA SHAKE 237 ML CAN PO SCH ×3 (08:21→17:13)
[2021-12-10] MEDS: MUPIROCIN OINT 2% 22 GM TUBE NS SCH ×2 (08:21→17:12)
[2021-12-10] MEDS: VANCOMYCIN 0.75 GM in IV D5W 250 ML IV SCH (11:54)
[2021-12-10 16:00] VITALS: BP 131/81
[2021-12-10] MEDS: INSULIN REGULAR, HUMAN 100 UNIT/ML 3 ML VIAL SQ PRN ×2 (18:09→22:47)
--- NOTE | 2021-12-10 19:25 | NUR ---
MS RN OPENING NOTES RECEIVED PATIENT ON BED AWAKE, ALERT AND ORIENTED X 2 WITH PERIODS OF CONFUSION. BREATHING. IS EVEN AND NONLABORED. NO SOB NOTED. REMAINS STABLE ON ROOM AIR; TOLERATING WELL. WITH IV ACCESS ON RIGHT HAND G #22; INTACT AND SALINE LOCKED. ABLE TO MAKE NEEDS KNOWN. SAFETY MEASURES IMPLEMENTED: CALL LIGHT AND TABLE WITHIN EASY REACH, SIDE RAILS UP X 2, BED IN LOWEST LOCKED POSITION. WILL CONTINUE TO MONITOR
[2021-12-10 20:00] VITALS: BP 136/70
[2021-12-10] MEDS: ENOXAPARIN SODIUM 40 MG/0.4 ML DISP.SYRIN SQ SCH (21:36)
[2021-12-10] MEDS: ATORVASTATIN 10 MG TABLET PO SCH (21:45)
[2021-12-10] MEDS: DONEPEZIL 5 MG TABLET PO SCH (21:45)
--- NOTE | 2021-12-10 22:10 | NUR ---
MS RN NOTES\ BLOOD SUGAR CHECKED WITH RESULT OF 186 MG/DL; 3 UNITS OF REGULAR INSULIN PER SLIDING SCALE GIVEN SQ ORDERED.
[2021-12-11] MEDS: ZOSYN IVPB 3.375 G in IV D5W 50ml IV SCH ×3 (00:09→12:25)
[2021-12-11] MEDS: BLOOD SUGAR DIAGNOSTIC 1 EACH STRIP IN SCH ×2 (07:00→12:22)
--- NOTE | 2021-12-11 07:10 | NUR ---
MS RN CLOSING NOTES RECEIVED PATIENT ON BED AWAKE, ALERT AND ORIENTED X 2 WITH PERIODS OF CONFUSION. BREATHING IS EVEN AND NONLABORED. NO SOB NOTED. REMAINS STABLE ON ROOM AIR; TOLERATING WELL. WITH IV ACCESS ON RIGHT HAND G #22; INTACT AND SALINE LOCKED. ABLE TO MAKE NEEDS KNOWN. ALL DUE MEDS GIVEN ORDERED. SAFETY MEASURES IMPLEMENTED: CALL LIGHT AND TABLE WITHIN EASY REACH, SIDE RAILS UP X 2, BED IN LOWEST LOCKED POSITION. ENDORSED TO MORNING SHIFT FOR CONTINUITY OF CARE.
--- NOTE | 2021-12-11 08:01 | NUR ---
MS/RN OPENING NOTES RECEIVED PATIENT IN BED AWAKE, ALERT AND ORIENTED X2 WITH PERIODS OF CONFUSION. BREATHING IS EVEN AND NONLABORED. NO SOB NOTED. REMAINS STABLE ON ROOM AIR; TOLERATING WELL. WITH IV ACCESS ON RIGHT HAND #22G; INTACT AND SALINE LOCKED. SAFETY MEASURES IMPLEMENTED: CALL LIGHT AND TABLE WITHIN EASY REACH, SIDE RAILS UP X 2, BED IN LOWEST LOCKED POSITION. WILL CONTINUE WITH THE PLAN OF CARE.
[2021-12-11 08:10] VITALS: BP 150/83
[2021-12-11 08:26] VITALS: BP 150/83
[2021-12-11] MEDS: PANTOPRAZOLE 40 MG TABLET.DR PO SCH (08:26)
[2021-12-11] MEDS: PREGABALIN 25 MG CAPSULE PO SCH ×2 (08:26→12:28)
[2021-12-11] MEDS: ARIPIPRAZOLE 5 MG TABLET PO SCH (08:26)
[2021-12-11] MEDS: POLYETHYLENE GLYCOL 3350 17 GM POWD.PACK PO SCH (08:26)
[2021-12-11] MEDS: DIVALPROEX SODIUM 125 MG CAP.SPRINK PO SCH ×2 (08:26→12:28)
[2021-12-11] MEDS: CARVEDILOL 12.5 MG TABLET PO SCH (08:26)
[2021-12-11] MEDS: LIDOCAINE 5% (PATCH) 1 EA PATCH TP SCH (08:26)
[2021-12-11] MEDS: AMLODIPINE BESYLATE 2.5 MG TABLET PO SCH (08:26)
[2021-12-11] MEDS: ASPIRIN 81 MG TAB.CHEW PO SCH (08:27)
[2021-12-11] MEDS: BACLOFEN (10 MG) 10 MG TABLET PO SCH ×2 (08:27→12:29)
[2021-12-11] MEDS: GLUCERNA SHAKE 237 ML CAN PO SCH ×2 (08:27→12:22)
[2021-12-11] MEDS: MUPIROCIN OINT 2% 22 GM TUBE NS SCH (08:27)
[2021-12-11] MEDS: ACETAMINOPHEN 325 MG TABLET PO SCH (08:27)
[2021-12-11 08:41] LABS: CREATININE 0.9 mg/dL (0.6-1.3); POTASSIUM 3.7 mmol/L (3.5-5.1)
[2021-12-11 08:56] LABS: CALCIUM, SERUM 8.9 mg/dL (8.5-10.1)
[2021-12-11] MEDS ORDERED: CEPH500C2 PO (10:00)
--- NOTE | 2021-12-11 14:40 | NUR ---
PATIENT IS ALERT AND ORIENTED X2, ABLE TO MAKE NEEDS KNOWN. STABLE ON ROOM AIR. AMBULATORY. PATIENT IS MEDICALLY STABLE AND DOCTOR ORDERED DISCHARGE BACK TO [facility]. DISCHARGE INSTRUCTIONS GIVEN TO THE REHAB FACILITY. PATIENT REFUSED WOUND PICTURE TAKING. IV ACCESS DISCONTINUED. ALL BELONGINGS ACCOUNTED FOR. PATIENT WAS PICKED UP BY EMT FOR TRANSFER.
== END 2021-12-11 14:30 | DRG 623 ==
LOC: ER 21:31 → TELE 12-07 01:57 → MED 12-07 03:57
PROVIDERS: ADMIT Internal Medicine; ATTEND Internal Medicine
PROC: 0JBQ0ZZ Excision of Right Foot Subcutaneous Tissue and Fascia, Open Approach (ICD-10-PCS; principal; 2021-12-08)
PROC: 0KBW0ZZ Excision of Left Foot Muscle, Open Approach (ICD-10-PCS; 2021-12-08)
DX: E11.621 Type 2 diabetes mellitus with foot ulcer (principal); E87.1 Hypo-osmolality and hyponatremia; L03.116 Cellulitis of left lower limb; G93.49 Other encephalopathy; R22.42 Localized swelling, mass and lump, left lower limb; F03.90 Unspecified dementia, unspecified severity, without behavioral disturbance, psychotic disturbance, mood disturbance, and anxiety; I10 Essential (primary) hypertension; E11.51 Type 2 diabetes mellitus with diabetic peripheral angiopathy without gangrene; L97.529 Non-pressure chronic ulcer of other part of left foot with unspecified severity; E11.42 Type 2 diabetes mellitus with diabetic polyneuropathy; G89.29 Other chronic pain; L84 Corns and callosities; Z79.84 Long term (current) use of oral hypoglycemic drugs; L97.519 Non-pressure chronic ulcer of other part of right foot with unspecified severity; B95.1 Streptococcus, group B, as the cause of diseases classified elsewhere; Z20.822 Contact with and (suspected) exposure to COVID-19
CPT/HCPCS: 36415; 70450-TC; 71045-TC; 73701-TC; 80048-TC; 80053-TC; 80061-TC; 80076-TC; 80202-TC; 82962-TC; 83605-TC; 83735-TC; 84100-TC; 84484-TC; 85025-TC; 87040-TC; 87070-TC; 87075-TC; 87081-TC; 87186-TC; 88305-TC; A6403; C9803; G0378; J1650; J1815; J2250; J2543; J3010; J3370; J3490; J7030; J7040; J7050; J7060; Q9967

== ENCOUNTER 2024-12-20 04:46 | Inpatient (IN) | payer MEDICARE, OTHER ==
[~2024-12-20] VITALS: Ht 177.8 cm; Wt 78.0 kg
[~2024-12-20 04:46] MED LIST changes: +ACET-868 PO; -ACET325T53 PO; +AMIN30LI2 PO; +ASCO-352 PO; +ASPI-1169 PO; +ATOR10TA PO; +BACL10TA PO; +BACL5TAB PO; +BUPR2TAB3 SL; +CEPH500C2 PO; +DIVA125C2 PO; +DONE5TAB34 PO; +FENO145T PO; +GENT3.5O4 TD; +IMIQ1CRE11 TP; +LIDO30AD10 TP; +MULT-447 PO; -PREG25CA PO; +PREG50CA PO; -TRAZ-182 PO; +TYL2T PO; -VANC1PLA9 IV; +VITA1TAB56 PO
[2024-12-20 05:27] LABS: BASOPHILS % (AUTO) 0.5 % (0.0-2.0); EOSINOPHILS # (AUTO) 0.3 K/uL (0.0-0.7); EOSINOPHILS % (AUTO) 5.3 % (0.0-6.0); HEMATOCRIT 34 % (39-51); LYMPHOCYTES # (AUTO) 1.1 K/uL (0.8-4.8); MEAN CORPUSCULAR HEMOGLOBIN 26 PG (26.0-33.0); MEAN CORPUSCULAR HGB CONC 33 g/dl (31.0-36.0); MEAN CORPUSCULAR VOLUME 80 fL (80-96); MONOCYTES # (AUTO) 0.5 K/uL (0.1-1.30); MONOCYTES % (AUTO) 8.7 % (2.0-12.0); NEUTROPHILS # (AUTO) 4.3 K/uL (1.8-8.9); NEUTROPHILS % (AUTO) 68.5 % (43.0-81.0); PLATELET COUNT (AUTO) 321 K/uL (150-450); RED CELL DISTRIBUTION WIDTH 16.8 % (11.5-15.0); WHITE BLOOD COUNT (AUTO) 6.3 K/uL (4.3-11.0)
[2024-12-20 05:38] LABS: CARBON DIOXIDE 25 mmol/L (21-32); CHLORIDE 95 mmol/L (98-107); CREATININE 1.3 mg/dL (0.6-1.3); GLUCOSE 82 mg/dL (74-106); POTASSIUM 4.7 mmol/L (3.5-5.1); SODIUM SERUM 126 mmol/L (136-145); UREA NITROGEN, BLOOD 20 mg/dL (7-18)
[2024-12-20 05:44] LABS: ALANINE AMINOTRANSFERASE 21 U/L (12-78); ALBUMIN 3.9 g/dL (3.4-5.0); ALKALINE PHOSPHATASE 76 U/L (46-116); ASPARTATE AMINOTRANSFERASE 19 U/L (15-37); BILIRUBIN,DIRECT 0.2 mg/dL (0.0-0.2); BILIRUBIN,TOTAL 0.4 mg/dL (0.2-1.0); TOTAL PROTEIN, SERUM 7.4 g/dL (6.4-8.2)
[2024-12-20] MEDS ORDERED: OLANZAPINE 10 MG VIAL IM ONE ×2 (06:12→07:50)
[2024-12-20] MEDS ORDERED: TDAP [DIPH/PERTUSSIS/TET] 0.5 ML VIAL IM ONE (06:13)
[2024-12-20] MEDS: TDAP [DIPH/PERTUSSIS/TET] 0.5 ML VIAL IM ONE (06:19)
[2024-12-20] MEDS: OLANZAPINE 10 MG VIAL IM ONE ×2 (06:20→07:56)
[2024-12-20] MEDS ORDERED: AMLO-213 PO (08:41)
[2024-12-20] MEDS ORDERED: DEXT38GE12 PO (08:41)
[2024-12-20] MEDS ORDERED: METO25TA20 PO (08:41)
[2024-12-20] MEDS ORDERED: ZINC220C6 PO (08:41)
[2024-12-20] MEDS ORDERED: OXCA300T15 PO (08:41)
[2024-12-20] MEDS ORDERED: GLUC1KIT IM (08:41)
[2024-12-20] MEDS ORDERED: FAMO-108 PO (08:41)
[2024-12-20] MEDS ORDERED: SODI100037 PO (08:41)
[2024-12-20] MEDS ORDERED: ONDANSETRON HCL/PF 4 MG/2 ML VIAL IVP PRN (11:30)
[2024-12-20] MEDS ORDERED: MAGNESIUM HYDROXIDE 30 ML UDC PO PRN (11:30)
[2024-12-20] MEDS ORDERED: ACETAMINOPHEN 325 MG TABLET PO PRN (11:30)
[2024-12-20] MEDS ORDERED: Z GUARD REMEDY 4 OZ OINT TP PRN (11:30)
[2024-12-20] MEDS ORDERED: MAG HYDROX/AL HYDROX/SIMETH 30 ML UDC PO PRN (11:30)
[2024-12-20 12:00] VITALS: BP 145/89; TEMP 97.8; O2SAT 99
[2024-12-20] MEDS: IV NS 0.9% 1,000 ML IV PRN (12:58)
[2024-12-20] MEDS: OXCARBAZEPINE 150 MG TABLET PO SCH (12:59)
[2024-12-20] MEDS ORDERED: LORAZEPAM INJ 2 MG/ML VIAL IM PRN (16:00)
[2024-12-20] MEDS: METOPROLOL TARTRATE 25 MG TABLET PO SCH (17:42)
[2024-12-20] MEDS: FAMOTIDINE (20 MG) 20 MG TABLET PO SCH (17:42)
[2024-12-20] MEDS: SODIUM CHLORIDE 1000 MG TABLET PO SCH (17:42)
[2024-12-20] MEDS: HALOPERIDOL LACTATE INJ 5 MG/ML VIAL IM ONE (17:43)
[2024-12-20 20:00] VITALS: BP 152/92; TEMP 98.1; O2SAT 98
[2024-12-21 06:23] LABS: BASOPHILS % (AUTO) 0.5 % (0.0-2.0); EOSINOPHILS # (AUTO) 0.4 K/uL (0.0-0.7); HEMATOCRIT 35 % (39-51); HEMOGLOBIN 11.8 g/dL (13.5-17.5); LYMPHOCYTES # (AUTO) 1.7 K/uL (0.8-4.8); LYMPHOCYTES % (AUTO) 19.3 % (20.0-44.0); MEAN CORPUSCULAR HEMOGLOBIN 27 PG (26.0-33.0); MEAN CORPUSCULAR HGB CONC 34 g/dl (31.0-36.0); MEAN CORPUSCULAR VOLUME 79 fL (80-96); MONOCYTES # (AUTO) 0.9 K/uL (0.1-1.30); MONOCYTES % (AUTO) 9.9 % (2.0-12.0); NEUTROPHILS # (AUTO) 5.8 K/uL (1.8-8.9); NEUTROPHILS % (AUTO) 65.3 % (43.0-81.0); PLATELET COUNT (AUTO) 427 K/uL (150-450); RED BLOOD CELL COUNT(AUTO) 4.46 MIL/uL (4.5-6.0); RED CELL DISTRIBUTION WIDTH 16.7 % (11.5-15.0); WHITE BLOOD COUNT (AUTO) 8.9 K/uL (4.3-11.0)
[2024-12-21 07:08] LABS: CALCIUM, SERUM 10.2 mg/dL (8.5-10.1); CREATININE 1.3 mg/dL (0.6-1.3); MAGNESIUM 2.2 mg/dL (1.8-2.4); PHOSPHORUS 2.9 mg/dL (2.5-4.9); POTASSIUM 4.2 mmol/L (3.5-5.1)
[2024-12-21 08:47] VITALS: BP 90/63; TEMP 98.2; O2SAT 99
[2024-12-21] MEDS: ASPIRIN 81 MG TAB.CHEW PO SCH (12:03)
[2024-12-21] MEDS: AMLODIPINE BESYLATE 10 MG TABLET PO SCH (12:04)
[2024-12-21 20:00] VITALS: BP 135/80; TEMP 97.9; O2SAT 100
[2024-12-22 06:46] LABS: BASOPHILS % (AUTO) 0.5 % (0.0-2.0); EOSINOPHILS # (AUTO) 0.2 K/uL (0.0-0.7); HEMATOCRIT 33 % (39-51); HEMOGLOBIN 11.4 g/dL (13.5-17.5); LYMPHOCYTES # (AUTO) 1.1 K/uL (0.8-4.8); MEAN CORPUSCULAR HEMOGLOBIN 27 PG (26.0-33.0); MEAN CORPUSCULAR HGB CONC 34 g/dl (31.0-36.0); MEAN CORPUSCULAR VOLUME 80 fL (80-96); MONOCYTES # (AUTO) 0.4 K/uL (0.1-1.30); MONOCYTES % (AUTO) 7.8 % (2.0-12.0); NEUTROPHILS # (AUTO) 3.2 K/uL (1.8-8.9); NEUTROPHILS % (AUTO) 64.7 % (43.0-81.0); PLATELET COUNT (AUTO) 319 K/uL (150-450); RED BLOOD CELL COUNT(AUTO) 4.15 MIL/uL (4.5-6.0); WHITE BLOOD COUNT (AUTO) 4.9 K/uL (4.3-11.0)
[2024-12-22 06:48] LABS: CALCIUM, SERUM 9.1 mg/dL (8.5-10.1); POTASSIUM 3.9 mmol/L (3.5-5.1)
[2024-12-22 08:00] VITALS: BP 147/82; TEMP 97.7; O2SAT 98
[2024-12-22 16:00] VITALS: BP 150/78; TEMP 97.5; O2SAT 98
[2024-12-22 20:00] VITALS: BP 149/82; TEMP 98.2; O2SAT 100
[2024-12-23 08:00] VITALS: BP 174/82; TEMP 97.5; O2SAT 100
[2024-12-23 09:30] VITALS: BP 148/85
[2024-12-23 16:00] VITALS: BP 150/73; TEMP 98.6; O2SAT 64
[2024-12-23 21:12] VITALS: BP 137/76; TEMP 98.2; O2SAT 98
[2024-12-24 10:21] VITALS: BP 149/91
== END 2024-12-24 17:00 | DRG 643 ==
LOC: ER 04:53 → TELE 09:24 → MED 11:57
PROVIDERS: ADMIT Internal Medicine; ATTEND Internal Medicine
DX: E22.2 Syndrome of inappropriate secretion of antidiuretic hormone (principal); G93.41 Metabolic encephalopathy; F03.90 Unspecified dementia, unspecified severity, without behavioral disturbance, psychotic disturbance, mood disturbance, and anxiety; S01.81XA Laceration without foreign body of other part of head, initial encounter; W19.XXXA Unspecified fall, initial encounter; I10 Essential (primary) hypertension; I25.10 Atherosclerotic heart disease of native coronary artery without angina pectoris; K21.9 Gastro-esophageal reflux disease without esophagitis; Z88.2 Allergy status to sulfonamides; F39 Unspecified mood [affective] disorder; E11.40 Type 2 diabetes mellitus with diabetic neuropathy, unspecified; E11.51 Type 2 diabetes mellitus with diabetic peripheral angiopathy without gangrene; Z79.84 Long term (current) use of oral hypoglycemic drugs; E86.1 Hypovolemia; Y93.9 Activity, unspecified; Y92.129 Unspecified place in nursing home as the place of occurrence of the external cause
CPT/HCPCS: 36415; 70450-TC; 71045-TC; 72125-TC; 80048-TC; 80076-TC; 83735-TC; 84100-TC; 84484-TC; 85025-TC; 87081-TC; 90715; A4223; G0378; J1630; J3490; J7030